=== PATIENT | female | born 1965 | race Hispanic/Latino ===

== ENCOUNTER → 2018-03-31 | Emergency (ER) | payer MEDICARE, OTHER ==
[~2018-03-31] MED LIST: HYDROCODONE/ACETAMINOPHEN 10/325 MG TAB ONE
== END ==
LOC: EDH 22:09
DX: S93.492A Sprain of other ligament of left ankle, initial encounter (principal); W18.39XA Other fall on same level, initial encounter; Y93.01 Activity, walking, marching and hiking; Y92.098 Other place in other non-institutional residence as the place of occurrence of the external cause; Y99.8 Other external cause status
CPT/HCPCS: 29515; 73610